=== PATIENT | male | born 1995 | race Two or more races ===

== ENCOUNTER 2016-03-17 14:23 | Emergency (ER) ==
[2016-03-17 14:29] VITALS: BP 142/84; TEMP 98.1; BMI 30.2
[2016-03-17 15:27] LABS: BASOPHILS % (AUTO) 0.3 % (0.0-3.0); EOSINOPHILS # (AUTO) 0.6 K/ul (0.0-0.7); EOSINOPHILS % (AUTO) 7.1 % (0.0-7.0); HEMATOCRIT 47.1 % (42.0-52.0); HEMOGLOBIN 16.3 g/dl (14.0-18.0); IMMATURE GRANULOCYTE % (AUTO) 0.5 % (0.0-5.0); LYMPHOCYTES % (AUTO) 26.3 (10.0-50.0); MEAN CORPUSCULAR HEMOGLOBIN 29.1 pg (27.0-31.0); MEAN CORPUSCULAR HGB CONC 34.6 (31.8-35.4); MONOCYTES # (AUTO) 0.3 K/uL (0.4-2.0); NEUTROPHILS # (AUTO) 4.8 K/ul (2.0-6.9); NEUTROPHILS % (AUTO) 61.8; PLATELET COUNT 367 10^3/uL (140-440); RED BLOOD COUNT 5.61 10^6/ul (4.70-6.10); WHITE BLOOD COUNT 7.71 K/ul (4.2-10.2)
[2016-03-17 15:46] LABS: ALBUMIN 4.4 g/dL (3.4-5.0); ALBUMIN/GLOBULIN RATIO 1.19; ANION GAP 13.8; BILIRUBIN,TOTAL 0.65 mg/dL (0.60-1.40); BUN/CREATININE RATIO 13.79; CALCIUM 9.8 mg/dL (8.2-10.2); CREATININE 0.87 mg/dL (0.60-1.10); POTASSIUM 3.8 mmol/L (3.5-5.1); TOTAL PROTEIN 8.1 g/dL (6.4-8.2)
--- NOTE | 2016-03-17 16:10 | CT ---
EXAM: CT Abdomen without contrast. CT Pelvis without contrast. HISTORY: Epigastric pain. COMPARISON: None available. TECHNIQUE: Multiple axial images of the abdomen and pelvis were obtained without intravenous contra st. Images were reformatted in the coronal plane. FINDINGS: Please note that evaluation of the abdominal and pelvic structures is limited due to lack of intravenous contrast. The lung bases are clear. 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 No acute osseous abnormality detected.. The liver, gallbladder, pancreas, spleen, adrenal glands, and kidneys demonstrate normal contour. N o calcified renal stones or hydronephrosis detected. The bowel is normal in course and caliber without evidence for obstruction or inflammatory process. The appendix is normal. Multiple mesenteric lymph nodes are present, which are nonspecific. No fr ee fluid or free air identified. Urinary bladder is unremarkable. IMPRESSION: 1. No acute abnormality within the abdomen or pelvis. 2. Nonspecific mesenteric lymph nodes.
[2016-03-17 16:17] LABS: BILIRUBIN,URINE Negative (NEGATIVE); KETONES,URINE Negative (NEGATIVE); LEUKOCYTE ESTERASE ,URINE Negative (NEGATIVE); NITRITE,URINE Negative (NEGATIVE); PROTEIN,URINE Negative (NEGATIVE); URINE, BLOOD Negative (NEGATIVE)
[2016-03-17 16:20] LABS: ADD URINE MICROSCOPIC NO
--- NOTE | 2016-03-17 17:22 | ED.PDOC ---
General ED Provider: Dr. JUANA JESSICA Chief Complaint: Abdominal Pain Stated Complaint: abdominal pain diffuse Time Seen by Physician: 14:33 Mode of Arrival: Walk-In Information Source: Patient, Family Exam Limitations: No limitations Primary Care Provider: TRISTEN DEMARCO Nursing and Triage Documentation Reviewed and Agree: Yes GI Complaint Exam - Abdominal Pain Complaint/Exam Onset: Gradual Duration: 1 day Symptoms Are: Resolved Timing: Intermittent Initial Severity: Moderate Current Severity: None Location of Pain: Diffuse Character: Reports: Cramping Aggravating: Reports: None Alleviating: Reports: None Associated Signs and Symptoms: Denies: Diaphoresis, Fever, Cough, Chest pain, Dizziness, Back pain, Constipation, Blood in stool, Dysuria, Urinary frequency, Decreased urine output, Decreased appetite, Discharge, Nausea, Vomiting, Diarrhea, Decreased activity Testicular Torsion Risk Factors: Reports: None Surgical Obstruction Risk Factors: Reports: None Related Surgical History: Reports: None Abdominal Findings: Present: None Differential Diagnoses: Appendicitis, Bowel Obstruction, Constipation, Diverticulitis, Gastroenteritis, Hepatitis, Pancreatitis, Irritable Bowel Syndrome, UTI Review of Systems - Review Of Systems Constitutional: Reports: No symptoms Eyes: Reports: No symptoms Ears, Nose, Mouth, Throat: Reports: No symptoms Respiratory: Reports: No symptoms Cardiac: Reports: No symptoms GI: Reports: Abdominal pain : Reports: No symptoms Musculoskeletal: Reports: No symptoms Skin: Reports: No symptoms Neurological: Reports: No symptoms Endocrine: Reports: No symptoms Hematologic/Lymphatic: Reports: No symptoms All Other Systems: Reviewed and Negative Past Medical History - Past Medical History Endocrine: Reports: None Cardiovascular: Reports: None Respiratory: Reports: None Hematological: Reports: None Gastrointestinal: Reports: None Genitourinary: Reports: None Neuro/Psych: Reports: None Musculoskeletal: Reports: None Cancer: Reports: None - Surgical History General Surgical History: Reports: None - Family History Family History: Reports: None - Social History Smoking Status: Never smoker Hx Substance Use: No Alcohol Screening: None - Immunizations Tetanus Shot up to Date: Yes Physical Exam - Physical Exam Appearance: Well-appearing, No pain distress, Well-nourished Eyes: ADINA, EOMI, Conjunctiva clear ENT: Ears normal, Nose normal, Oropharynx normal Respiratory: Airway patent, Breath sounds clear, Breath sounds equal, Respirations nonlabored Cardiovascular: RRR, Pulses normal, No rub, No murmur GI/: Soft, Nontender, No masses, Bowel sounds normal, No Organomegaly Musculoskeletal: Normal strength, ROM intact, No edema, No calf tenderness Skin: Warm, Dry, Normal color Neurological: Sensation intact, Motor intact, Reflexes intact, Cranial nerves intact, Alert, Oriented Psychiatric: Affect appropriate, Mood appropriate Interpretation - Radiology Interpretation Radiology Interpretation By: Radiologist Radiology Results: No acute changes Critical Care Note - Critical Care Note Total Time (mins): 0 Course - Course Hematology/Chemistry: 03/17/16 15:20 03/17/16 15:20 Orders, Labs, Meds: Lab Review 03/17/16 03/17/16 15:20 16:10 WBC 7.71 RBC 5.61 Hgb 16.3 Hct 47.1 MCV 84.0 MCH 29.1 MCHC 34.6 RDW Coeff of Sandra 13.4 Plt Count 367 Immature Gran % (Auto) 0.5 Neut % (Auto) 61.8 Lymph % (Auto) 26.3 [place] % (Auto) 4.0 Eos % (Auto) 7.1 H Baso % (Auto) 0.3 Immature Gran # (Auto) 0.0 Neut # 4.8 Lymph # 2.0 [place] # 0.3 L Eos # 0.6 Baso # 0.0 Sodium 139 Potassium 3.8 Chloride 103 Carbon Dioxide 26 Anion Gap 13.8 BUN 12 Creatinine 0.87 Estimated GFR (MDRD) 113.00 BUN/Creatinine Ratio 13.79 Glucose 111 H Calcium 9.8 Total Bilirubin 0.65 AST 38 H ALT 90 H Alkaline Phosphatase 111 Total Protein 8.1 Albumin 4.4 Globulin 3.7 Albumin/Globulin Ratio 1.19 Amylase 57 Lipase 9 Urine Color Yellow Urine Clarity Clear Urine pH 7.0 Ur Specific [place] 1.020 Urine Protein Negative Urine Glucose (UA) Negative Urine Ketones Negative Urine Blood Negative Urine Nitrite Negative Urine Bilirubin Negative Urine Urobilinogen 1.0 Ur Leukocyte Esterase Negative Orders Category Date Time Status AMYLASE Stat LAB 03/17/16 15:20 Completed CBC W/ AUTO DIFF Stat LAB 03/17/16 15:20 Completed COMPREHENSIVE METABOLIC PANEL Stat LAB 03/17/16 15:20 Completed HEPATITIS PANEL, ACUTE Stat LAB 03/17/16 16:38 Received LIPASE Stat LAB 03/17/16 15:20 Completed URINALYSIS C & S IF INDICATED Stat LAB 03/17/16 16:[address] ABDOMEN/PELVIS WO CONTRAST Stat RADS 03/17/16 15:13 Completed Vital Signs: Temp Pulse Resp BP Pulse Ox 03/17/16 14:24 98.1 F 62 20 142/84 H 97 Departure - Departure Time of Disposition: 17:21 Disposition: HOME SELF-CARE Discharge Problem: Abdominal pain Instructions: Acute Abdominal Pain (ED) Condition: Good Pt referred to PMD for follow-up: No Additional Instructions: Please call your Family Physician as soon as possible to schedule a follow-up appointment. you have abnormal liver enzymes you must follow up with your doctor KELLY you have liver/hepatitis test pending make sure you follow up results . avoid alcohol your liver shows signs of stress at this time . Allergies/Adverse Reactions: Allergies strawberry Adverse Reaction (Verified 03/17/16 14:33) Hives RASH AND HIVES ALL OVER. Home Medications: Ambulatory Orders 1 [No Reported Medications] 03/17/16
== END 2016-03-17 17:43 | disposition home or self-care (01) ==
LOC: ED 14:23
DX: R10.84 Generalized abdominal pain (principal); R74.8 Abnormal levels of other serum enzymes
CPT/HCPCS: 36415; 80053; 80074; 81001; 82150; 83690; 85025; 99283

== ENCOUNTER 2016-03-27 09:01 | Outpatient (CLI) ==
--- NOTE | 2016-03-27 12:27 | NM ---
EXAM: Hepatobiliary scan HISTORY: Abdominal pain. COMPARISON: None of this type. CT 03/17/2016. PROCEDURE: The patient was injected with 5.3 mCi of 99mTc mebrofenin intravenously. Images of the a bdomen were obtained at 5 min intervals for 30 minutes. Additional images were obtained at 45 minut es and 1 hour. The patient was then injected with 2 mcg of CCK by slow infusion while images of the gallbladder were obtained to assess gallbladder contraction. The patient experienced no pain with th e injection of CCK. FINDINGS: Sequential images demonstrate normal uptake of tracer into the liver. Activity is seen in the intrahepatic biliary ducts at about 10 minutes. The activity appears in the gallbladder at abo ut 30 minutes. Subsequent images demonstrate increasing activity in the gallbladder. Activity firs t appears in the small bowel at 15 minutes. The gallbladder ejection fraction is 25% . IMPRESSION: 1.Normal hepatobiliary scan. 2.The gallbladder ejection fraction is 25% (low).
== END 2016-03-27 09:02 | disposition home or self-care (01) ==
LOC: RAD 09:01
PROVIDERS: ATTEND Physician Assistant Medical
DX: R10.9 Unspecified abdominal pain (principal)

== ENCOUNTER 2016-05-31 14:25 | Emergency (ER) ==
[2016-05-31 14:40] VITALS: BP 135/43; TEMP 97.4; BMI 29.5
--- NOTE | 2016-05-31 14:57 | ED.PDOC ---
General ED Provider: Dr. JUANA JESSICA Chief Complaint: Wound Check Stated Complaint: wound check Time Seen by Physician: 14:30 (post op wound check) Mode of Arrival: Walk-In Information Source: Patient Exam Limitations: No limitations Primary Care Provider: TRISTEN DEMARCO Nursing and Triage Documentation Reviewed and Agree: Yes (minimal drainage) Skin Complaint Exam - Skin/Soft Tissue Complaint/Exam Onset/Duration: 1 day post op 14 days GB SURGERY Symptoms Are: Still present Timing: Constant Initial Severity: Mild Current Severity: None Character: Denies: Redness, Swelling, Raised, Painful Aggravating: Reports: None Alleviating: Reports: None Associated Signs and Symptoms: Denies: Fever, Chills, Itching, Drainage, Bruising, Tenderness, Red streaks, Joint swelling Related History: Reports: Similar episode Related Surgical History: Reports: None Recent Exposure to Others w/Similar Symptoms: No Review of Systems - Review Of Systems Constitutional: Reports: No symptoms Eyes: Reports: No symptoms Ears, Nose, Mouth, Throat: Reports: No symptoms Respiratory: Reports: No symptoms Cardiac: Reports: No symptoms GI: Reports: No symptoms : Reports: No symptoms Musculoskeletal: Reports: No symptoms Skin: Reports: No symptoms Neurological: Reports: No symptoms Endocrine: Reports: No symptoms Hematologic/Lymphatic: Reports: No symptoms All Other Systems: Reviewed and Negative Past Medical History - Past Medical History Endocrine: Reports: None Cardiovascular: Reports: None Respiratory: Reports: None Hematological: Reports: None Gastrointestinal: Reports: None Genitourinary: Reports: None Neuro/Psych: Reports: None Musculoskeletal: Reports: None Cancer: Reports: None - Surgical History General Surgical History: Reports: None - Family History Family History: Reports: None - Social History Smoking Status: Never smoker Hx Substance Use: No Alcohol Screening: None - Immunizations Tetanus Shot up to Date: Yes Physical Exam - Physical Exam Appearance: Well-appearing, No pain distress, Well-nourished Eyes: ADINA, EOMI, Conjunctiva clear ENT: Ears normal, Nose normal, Oropharynx normal Respiratory: Airway patent, Breath sounds clear, Breath sounds equal, Respirations nonlabored Cardiovascular: RRR, Pulses normal, No rub, No murmur GI/: Soft, Nontender, No masses, Bowel sounds normal, No Organomegaly Musculoskeletal: Normal strength, ROM intact, No edema, No calf tenderness Skin: Warm (SURGICAL SITE IN GOOD REPAIR SEE PHOTOS), Dry, Normal color Neurological: Sensation intact, Motor intact, Reflexes intact, Cranial nerves intact, Alert, Oriented Psychiatric: Affect appropriate, Mood appropriate Critical Care Note - Critical Care Note Total Time (mins): 0 Course - Course Vital Signs: Temp Pulse Resp BP Pulse Ox 05/31/16 14:25 97.4 F L 64 18 135/43 L 97 Departure - Departure Time of Disposition: 14:57 Disposition: HOME SELF-CARE Discharge Problem: Wound Instructions: Wound Dehiscence (ED) Condition: Good Pt referred to PMD for follow-up: No Additional Instructions: Please call your Family Physician as soon as possible to schedule a follow-up appointment. Allergies/Adverse Reactions: Allergies strawberry Adverse Reaction (Verified 05/31/16 14:35) Hives RASH AND HIVES ALL OVER. Home Medications: Ambulatory Orders 1 [No Reported Medications] 03/17/16
== END 2016-05-31 15:02 | disposition home or self-care (01) ==
LOC: ED 14:25
DX: T81.31XA Disruption of external operation (surgical) wound, not elsewhere classified, initial encounter (principal); Z90.49 Acquired absence of other specified parts of digestive tract
CPT/HCPCS: 99281

== ENCOUNTER 2017-02-04 14:03 | Emergency (ER) ==
[2017-02-04 14:06] VITALS: BP 155/90; TEMP 97.7; BMI 31.7
--- NOTE | 2017-02-04 14:15 | ED.PDOC ---
General ED Provider: Dr. LAVON QURESHI-ER Chief Complaint: Earache Stated Complaint: my ear is uncomfortable and i cant hear--this has happened before Time Seen by Physician: 14:13 Mode of Arrival: Walk-In Information Source: Patient Exam Limitations: No limitations Primary Care Provider: TRISTEN DEMARCO Nursing and Triage Documentation Reviewed and Agree: Yes Reviewed sepsis parameters & appropriate labs ordered?: Yes System Inflammatory Response Syndrome: Not Applicable Sepsis Protocol: For patient's 13 years and over: Temp is 96.8 and below OR 101 and greater Pulse >90 BPM Resp >20/minute Acutely Altered Mental Status Are patient's symptoms suggestive of a new infection, such as: -Pneumonia -Skin, Soft Tissue -Endocarditis -UTI -Bone, Joint Infection -Implantable Device -Acute Abdominal Infection -Wound Infection -Meningitis -Blood Stream Catheter Infection -Unknown EENT Complaint Exam - Ear Complaint/Exam Onset/Duration: 10 daysa Symptoms Are: Still present Timing: Constant Initial Severity: Mild Current Severity: Mild Character: Reports: Dull pain, Aching pain Aggravating: Reports: None Alleviating: Reports: None Associated Signs and Symptoms: Reports: Pain to external ear. Denies: Ear trauma, Ear swelling, Discharge, Fever, Hearing loss, Bleeding, Sore throat, Headache, URI symptoms, Foreign body sensation, Rash Related History: Reports: Similar Episode Ear Surgical History: None Vesicles to External Pinna: No Vesicles to Tragus: No TMJ Tenderness: None Mastoid Tenderness: None Tragal Tenderness: None External Canal: Erythema Material in Canal: Present: Cerumen impaction Differential Diagnoses: Cerumen Impaction Review of Systems - Review Of Systems Constitutional: Reports: No symptoms Eyes: Reports: No symptoms Ears, Nose, Mouth, Throat: Reports: Ear pain Respiratory: Reports: No symptoms Cardiac: Reports: No symptoms GI: Reports: No symptoms : Reports: No symptoms Musculoskeletal: Reports: No symptoms Skin: Reports: No symptoms Neurological: Reports: No symptoms Endocrine: Reports: No symptoms Hematologic/Lymphatic: Reports: No symptoms All Other Systems: Reviewed and Negative Past Medical History - Past Medical History Previously Healthy: No Endocrine: Reports: None Cardiovascular: Reports: None Respiratory: Reports: None Hematological: Reports: None Gastrointestinal: Reports: None Genitourinary: Reports: None Neuro/Psych: Reports: None Musculoskeletal: Reports: None Cancer: Reports: None - Surgical History General Surgical History: Reports: None - Family History Family History: Reports: None - Social History Smoking Status: Never smoker Hx Substance Use: No Alcohol Screening: None Lives: With family Physical Exam - Physical Exam Appearance: Well-appearing, No pain distress, Well-nourished Pain Distress: Mild Eyes: ADINA, EOMI, Conjunctiva clear ENT: Erythema (left ext canal sl erythematous with impacted cerumen) Respiratory: Airway patent, Breath sounds clear, Breath sounds equal, Respirations nonlabored Cardiovascular: RRR, Pulses normal, No rub, No murmur GI/: Soft, Nontender, No masses, Bowel sounds normal, No Organomegaly Musculoskeletal: Normal strength Skin: Warm, Dry, Normal color Neurological: Sensation intact Psychiatric: Affect appropriate, Mood appropriate Critical Care Note - Critical Care Note Total Time (mins): 0 Course - Course Vital Signs: Temp Pulse Resp BP Pulse Ox 02/04/17 14:03 97.7 F 66 16 155/90 H 96 Departure - Departure Time of Disposition: 14:15 Disposition: HOME SELF-CARE Discharge Problem: Ear problem Instructions: Cerumen Impaction (ED) Condition: Good Pt referred to PMD for follow-up: Yes Additional Instructions: floxin otic drops 10 drops into ear bid x 10 days--debrox otic drops 10 drops into the ear tid --flush with warm water --f/u with pcp this week to recheck ear Allergies/Adverse Reactions: Allergies strawberry Adverse Reaction (Verified 02/04/17 14:07) Hives RASH AND HIVES ALL OVER. Home Medications: Ambulatory Orders 1 [No Reported Medications] 03/17/16 Disposition Discussed With: Patient, Family
== END 2017-02-04 14:28 | disposition home or self-care (01) ==
LOC: ED 14:03
DX: H92.02 Otalgia, left ear (principal); H61.22 Impacted cerumen, left ear
CPT/HCPCS: 99282